=== PATIENT | male | born 1945 | race Caucasian/White ===

== ENCOUNTER 2018-12-28 13:56 | Emergency (ER) | payer SELFPAY ==
[~2018-12-28] VITALS: Ht 172.7 cm; Wt 80.0 kg
[2018-12-28 13:58] VITALS: BP 127/81
== END 2018-12-28 14:43 | disposition left against medical advice (07) ==
LOC: ER 14:42
DX: R10.12 Left upper quadrant pain (principal); M79.603 Pain in arm, unspecified; Z53.21 Procedure and treatment not carried out due to patient leaving prior to being seen by health care provider

== ENCOUNTER 2018-12-28 20:55 | Emergency (ER) | payer OTHER, SELFPAY ==
[~2018-12-28] VITALS: Ht 177.8 cm; Wt 73.0 kg
[2018-12-28 20:56] VITALS: BP 138/71
== END 2018-12-28 23:28 | disposition home or self-care (01) ==
LOC: ER 20:55
DX: M25.512 Pain in left shoulder (principal); F31.9 Bipolar disorder, unspecified; F20.9 Schizophrenia, unspecified
CPT/HCPCS: 73030; 99283